=== PATIENT | female | born 1960 | race Caucasian/White ===

== ENCOUNTER 2019-12-28 13:05 | Inpatient (IN) | payer MEDICAID ==
[~2019-12-28] VITALS: Ht 170.2 cm; Wt 66.6 kg
--- NOTE | 2019-12-28 13:26 | PHYS DOC ---
Past History Past Medical History: Other Additional Past Medical Histor: "Lung problems" Alcohol Use: None General Adult EDM: Chief Complaint: SHORTNESS OF BREATH HPI: HPI: 59-year-old female significant history of hypertension, COPD on 3 L, who presents for evaluation of reported chest pain and dyspnea. The patient reportedly fell while attempting to stand from the seated position. She initially denied lightheadedness, but endorsed it on repeat questioning. Her chief complaint appears to be chest pain, which is been present for the last day or so. She is unable to elaborate any further. Reportedly hypoxic on scene, currently at 92%. She is a fairly poor historian. Review of Systems: Review of Systems: Gen: No fever, chills. CV: Reports chest pain. Resp. Reports dyspnea. GI: No abd pain, N/V. Neuro: Reports weakness. MSK: Reports body aches. ROS somewhat limited 2/2 poor historian. Heart Score: Risk Factors: Risk Factors: DM, Current or recent (<one month) smoker, HTN, HLP, family history of CAD, obesity. Risk Scores: Score 0 - 3: 2.5% MACE over next 6 weeks - Discharge Home Score 4 - 6: 20.3% MACE over next 6 weeks - Admit for Clinical Observation Score 7 - 10: 72.7% MACE over next 6 weeks - Early Invasive Strategies Physical Exam: PE: Gen: NAD. Head: NC/AT. Eyes: No scleral icterus. No conjunctival injection. ENT: MMM. Posterior OP clear. Neck: Supple. CV: RRR. Peripheral pulses intact. Resp: Globally diminished. Prolonged expiratory phase. Expiratory wheezing. Abd: Soft. NT. MSK: No peripheral cyanosis. No edema. Neuro: A&Ox3. Strength & sensation grossly intact throughout. Skin. Warm. Dry. Psych: Flat affect. Current Patient Data: Vital Signs: Vital Signs Date Time Temp Pulse Resp B/P (MAP) Pulse Ox O2 Delivery O2 Flow Rate FiO2 12/28/19 13:06 98.2 109 16 100/66 (77) 90 Nasal Cannula EKG: EKG: EKG at 1331. Sinus tachycardia. Heart rate 105. Normal intervals. Nonspecific ST changes. No STEMI. Interpreted by me. Radiology/Procedures: Radiology/Procedures: EXAM: CHEST AP ONLY INDICATION: Reason: SOA / Spl. Instructions: / History: . TECHNIQUE: Single view COMPARISON: None FINDINGS: The heart size is normal. Great vessels show mild enlargement of the pulmonary arteries left greater than right. There is no hilar or mediastinal mass. Lungs are increased lucency at the apices and show coarse reticular densities most conspicuous in the bilateral bases with interlobular septal thickening at the lateral costophrenic angles, right greater than left. There is no pleural effusion or pneumothorax. There are no significant osseous abnormalities. IMPRESSION: Findings suggesting COPD with interstitial pulmonary edema at the bases. Electronically signed by: Dorian Sanon MD (12/28/2019 2:10 PM) [facility] [place] Course & Med Decision Making: Course & Med Decision Making Pertinent Labs and Imaging studies reviewed. (See chart for details) In summary, 59-year-old female with history of COPD on 3 L, who presents for evaluation of acute on chronic dyspnea with chest pain. Pulse oximetry is mid 90s on increased oxygen requirement, now at 5 L nasal cannula. Chest x-ray is mildly congested, though BNP within normal limits. No acute infiltrate. Troponin negative. EKG shows no acute injury pattern. Received Solu-Medrol and DuoNeb. Will be admitted for further management. Dragon Disclaimer: Dragon Disclaimer: This electronic medical record was generated, in whole or in part, using a voice recognition dictation system. Departure Departure: Impression: Primary Impression: Acute on chronic respiratory failure Additional Impression: Chest pain Disposition: ADMITTED INPATIENT Admitting Physician: Cristian Fisher Condition: STABLE Referrals: PCP,NO (PCP) Justification of Admission: Justification of Admission: Justification of Admission Dx: Yes Respiratory Failure: Severe Resp Distress Aspiration Pneumonia: Chronic Lung Disease Acute COPD Exacerbation: Acute COPD Exacerbation JOHN HALE DO Dec 28, 2019 13:26
[2019-12-28] MEDS ORDERED: IPRATRPIUM/ALBUTEROL 0.5/2.5MG 3 ML NEBU. NEB ONE (13:30)
[2019-12-28] MEDS ORDERED: methylPREDNISolone SOD SUCC PF 125 MG/2 ML VIAL. IV ONE ×2 (13:30→21:00)
[2019-12-28 13:47] LABS: BASO % 0 % (0-3); EOS # 0.1 x10^3/uL (0.0-0.7); EOS % 0 % (0-3); HEMOGLOBIN 11.5 g/dL (12.0-15.5); LYMPH # 0.7 x10^3/uL (1.0-4.8); LYMPH % 6 % (24-48); MEAN CORPUSCULAR HEMOGLOBIN 28 pg (25-35); MEAN CORPUSCULAR HGB CONC 31 g/dL (31-37); MEAN CORPUSCULAR VOLUME 88 fL (79-100); MONO # 0.8 x10^3/uL (0.0-1.1); MONO % 7 % (0-9); NEUT % 87 % (31-73); PLATELET COUNT 149 x10^3/uL (140-400); RED CELL DISTRIBUTION WIDTH 15.5 % (11.5-14.5); WHITE BLOOD COUNT 11.6 x10^3/uL (4.0-11.0)
[2019-12-28 13:53] LABS: CALCIUM 9.5 mg/dL (8.5-10.1); CREATININE 0.6 mg/dL (0.6-1.0); GFR 102.3; POTASSIUM 4.1 mmol/L (3.5-5.1)
[2019-12-28 14:06] LABS: ALBUMIN 3.6 g/dL (3.4-5.0); ALBUMIN/GLOBULIN RATIO 1.2 (1.0-1.7); MAGNESIUM 1.8 mg/dL (1.8-2.4); TOTAL BILIRUBIN 1.3 mg/dL (0.2-1.0); TOTAL PROTEIN 6.5 g/dL (6.4-8.2)
--- NOTE | 2019-12-28 14:08 | EKG ---
[address] [address] Test Date: 2019-12-28 Test Time: 13:31:30 Pat Name: VANNA SCHAFER Department: Room: Gender: F Strategic Procurement Manager: : [id number] Requested By: JOHN HALE Order Number: [id number] Reading MD: Measurements Intervals [place] Rate: 105 P: 136 NC: 150 QRS: 152 QRSD: 94 T: 129 QT: 282 QTc: 376 Interpretive Statements SINUS TACHYCARDIA LEFT ATRIAL ABNORMALITY ABNORMAL RIGHT AXIS DEVIATION R-S TRANSITION ZONE IN V LEADS DISPLACED TO THE LEFT T ABNORMALITY IN HIGH LATERAL LEADS ABNORMAL ECG RI6.02 No previous ECG available for comparison
--- NOTE | 2019-12-28 14:13 | RAD ---
EXAM: CHEST AP ONLY INDICATION: Reason: SOA / Spl. Instructions: / History: . TECHNIQUE: Single view COMPARISON: None FINDINGS: The heart size is normal. Great vessels show mild enlargement of the pulmonary arteries left greater than right. There is no hilar or mediastinal mass. Lungs are increased lucency at the apices and show coarse reticular densities most conspicuous in the bilateral bases with interlobular septal thickening at the lateral costophrenic angles, right greater than left. There is no pleural effusion or pneumothorax. There are no significant osseous abnormalities. IMPRESSION: Findings suggesting COPD with interstitial pulmonary edema at the bases. Electronically signed by: Dorian Sanon MD (12/28/2019 2:10 PM) [facility] [place]
[2019-12-28] MEDS ORDERED: ONDANSETRON PF 4 MG/2 ML VIAL. IVP PRN (14:45)
[2019-12-28 15:48] VITALS: BP 120/68
--- NOTE | 2019-12-28 17:06 | NUR ---
PATIENT IS 59 Y O FEMALE ARRIVED TO THE UNIT VIA EMS, PT WAS ABLE TO TRANSFER TO BED WITH STAND BY ASSIST. PATIENT IS CALM AND COOPERATIVE UPON ASSESSMENT. PT WAS ORIENTED TO THE ROOM, UNIT AND HOSPITAL POLICIES, PT BELONGINGS OBTAINED. PATIENT WAS TESTED FOR COVID 19 AT ER, RESULT PENDING, PATIENT IS PLACED ON AIRBORN PRECAUTIONS . WILL CONTINUE TO MONITOR.
--- NOTE | 2019-12-28 17:21 | HP ---
ADMIT DATE: 12/28/2019 ATTENDING PHYSICIAN: Dr. Evans. CHIEF COMPLAINT: Shortness of breath. HISTORY OF PRESENT ILLNESS: The patient is a 59-year-old female, heavy smoker, who has oxygen dependent COPD. She is normally on 3 liters. For the last 2 days, she has been short of breath. She has had productive sputum, clear in nature. No fevers. No COVID exposure. In the ED, chest x-ray demonstrated COPD changes, chronic scarring and some interstitial edema at the bases. No acute infiltrates identified. She could not give us any much more history. The daughter states that she recently lost her and that she will go through periods where she will not speak and appears to be in a catatonic state. Normally, she has oxygen at home. She had been reported to be hypoxic by paramedics however, with oxygen she is up to 92% on 3 liters of nasal cannula. She is admitted then with an exacerbation of COPD and acute on chronic respiratory failure. PAST MEDICAL HISTORY: Significant for COPD, oxygen dependent. She was a heavy smoker. Supposedly, she quit a year ago. There is also remote history of hypertension. CURRENT MEDICINES: None that I can review. ALLERGIES: She has no known drug allergies. SOCIAL HISTORY: No alcohol or recreational drug use. FAMILY HISTORY: Mom of unspecified cancer, age is unknown. Then, she stopped talking. The rest of the social history and review of systems unobtainable due to inpatient psychiatric state. PHYSICAL EXAMINATION: GENERAL: When I saw her, this is a chronically ill-appearing female. INITIAL VITAL SIGNS: Showed blood pressure 120/62, pulse 100 and regular, temperature 98.2 degrees Fahrenheit, oxygen saturation 96% on 5 liters by nasal cannula. HEENT: Head is without trauma. Pupils are reactive. Sclerae nonicteric. Oropharynx clear. NECK: Supple. LUNGS: Diffuse wheezing bilaterally. CARDIOVASCULAR: Showed distant heart tones. No gallops. Peripheral pulses are palpable and full. ABDOMEN: Soft, scaphoid, nontender. It is distended. There is some tympany. There appears to be quite a bit of gas. No masses or rebound tenderness. EXTREMITIES: Showed trace edema. NEUROLOGIC: The patient's speech is fluent, but she appears to be in a catatonic state with a blank stare. We did not assess her gait. She is nonambulatory at this time. PERTINENT LABORATORY AND X-RAY STUDIES: Chest x-ray showed interstitial changes and chronic scarring. Hemoglobin is 11.5 g/dL with white count 11,600. Electrolytes within normal range. Cardiac enzymes negative for myocardial ischemia. ASSESSMENT: 1. A 59-year-old female with acute on chronic respiratory failure. 2. Exacerbation of chronic obstructive pulmonary disease. 3. Underlying depression with psychosis. 4. Catatonia. 5. Hypertension. PLAN: 1. Admit to the inpatient unit. 2. Nebulizer therapy. 3. Empiric steroid. 4. Supplemental oxygen. 5. Diet as tolerated. OWEN EVANS MD DR: VARINDER/kim JOB#: [id number] / [id number]
[2019-12-28] MEDS ORDERED: SIMV20TA18 PO (17:22)
[2019-12-28] MEDS ORDERED: OMEP40CA45 PO (17:23)
[2019-12-28] MEDS ORDERED: MONT10TA80 PO (17:24)
[2019-12-28] MEDS ORDERED: ALBU2.5V8 IH (17:27)
[2019-12-28] MEDS ORDERED: IPRA4AER INH (17:27)
[2019-12-28 19:33] VITALS: BP 123/71
[2019-12-28] MEDS: methylPREDNISolone SOD SUCC PF 125 MG/2 ML VIAL. IV SCH (20:48)
[2019-12-28] MEDS ORDERED: ALEN70TA6 PO (21:09)
[2019-12-28] MEDS ORDERED: SERT50TA PO (21:09)
[2019-12-28] MEDS ORDERED: HYDR25TA PO (21:09)
[2019-12-28] MEDS ORDERED: LEVO25TA4 PO (21:09)
[2019-12-28] MEDS ORDERED: RISP1TAB43 PO (21:09)
[2019-12-28 22:14] VITALS: BP 115/74
[2019-12-29 05:12] VITALS: BP 106/65
--- NOTE | 2019-12-29 09:56 | PN ---
DATE: 12/29/2019 ATTENDING PHYSICIAN: Dr. Evans. SUBJECTIVE: The patient is much more alert. Yesterday, she was fairly catatonic and could not get much response out of her. Today, she is sitting in her bed. She has supplemental oxygen on, which is continuous. She is eating her breakfast. She says she is chronically short of breath. OBJECTIVE FINDINGS: GENERAL: Her COVID-19 swab was done yesterday is pending. She has no signs or symptoms of COVID-19 virus. VITAL SIGNS: Her blood pressure today is 106/65 mmHg, pulse is 88 and regular, temperature 98.4 degrees Fahrenheit, and her oxygen saturations are at 91% on 3 liters of nasal cannula. HEENT: Head is without trauma. Pupils are reactive. Sclerae nonicteric. The oropharynx is clear. NECK: Supple, no bruits. LUNGS: Minimal wheezing. She is actually moving air pretty well. There is no significant rhonchi. CARDIOVASCULAR: Showed distant heart tones. No obvious gallops. Peripheral pulses are palpable and full. ABDOMEN: Soft, scaphoid, nontender, no organomegaly. Bowel sounds were normoactive. EXTREMITIES: Showed no edema. NEUROLOGIC: She has a slight essential tremor. Speech is fluent. SKIN: Warm and dry. PERTINENT LABORATORY DATA: Reviewed yesterday. ASSESSMENT: 1. A 59-year-old female with acute on chronic respiratory failure. 2. Oxygen-dependent chronic obstructive pulmonary disease with strong emphysema component. 3. Underlying depression with psychosis. 4. Catatonia, resolved. 5. Essential hypertension, currently normotensive. PLAN: 1. Continue steroid therapy empirically. 2. Nebulizer therapy. 3. Await COVID-19 swab. 4. Supplemental oxygen continued. 5. Diet as tolerated. 6. Discharge planning for tomorrow or the next day. OWEN EVANS MD DR: VARINDER/kim JOB#: [id number] / [id number]
[2019-12-29 10:25] VITALS: BP 122/70
[2019-12-29] MEDS: methylPREDNISolone SOD SUCC PF 125 MG/2 ML VIAL. IV SCH ×3 (10:33→20:20)
[2019-12-29] MEDS: LEVOTHYROXINE 25 MCG TABLET. PO SCH (12:04)
[2019-12-29] MEDS: PANTOPRAZOLE 40 MG TABLET. PO SCH (12:05)
[2019-12-29] MEDS: SERTRALINE 50 MG TABLET. PO SCH (12:05)
[2019-12-29] MEDS: risperiDONE 1 MG TABLET. PO SCH ×2 (12:05→20:20)
[2019-12-29] MEDS: IPRATROPIUM/ALBUTEROL 20/100mcg/INH INHALER. INH SCH ×2 (14:00→17:37)
[2019-12-29 15:00] VITALS: BP 128/68
[2019-12-29 19:12] VITALS: BP 117/69
[2019-12-29 22:09] VITALS: BP 121/71
[2019-12-30] MEDS: IPRATROPIUM/ALBUTEROL 20/100mcg/INH INHALER. INH SCH ×2 (00:19→05:32)
--- NOTE | 2019-12-30 03:58 | NUR ---
Pt still requiring O2 at 5L via high flow NC to keep sats >90%. Pt does report feeling somewhat better and has been up to bathroom with O2 tank, able to recover sats quickly. Pt rested throughout night.
[2019-12-30 05:01] VITALS: BP 107/61
[2019-12-30] MEDS: LEVOTHYROXINE 25 MCG TABLET. PO SCH (05:32)
[2019-12-30] MEDS: SERTRALINE 50 MG TABLET. PO SCH (07:41)
[2019-12-30] MEDS: PANTOPRAZOLE 40 MG TABLET. PO SCH (07:41)
[2019-12-30] MEDS: risperiDONE 1 MG TABLET. PO SCH ×2 (07:41→21:52)
[2019-12-30] MEDS: methylPREDNISolone SOD SUCC PF 125 MG/2 ML VIAL. IV SCH ×2 (07:42→21:52)
[2019-12-30 10:59] VITALS: BP 124/74
[2019-12-30 12:06] LABS: BGAS PH 7.4 (7.35-7.45)
[2019-12-30] MEDS ORDERED: IPRATRPIUM/ALBUTEROL 0.5/2.5MG 3 ML NEBU. ONE (12:24)
[2019-12-30] MEDS ORDERED: IPRATROPIUM/ALBUTEROL 20/100mcg/INH INHALER. INH PRN (12:30)
[2019-12-30] MEDS ORDERED: IPRATRPIUM/ALBUTEROL 0.5/2.5MG 3 ML NEBU. NEB ONE (12:45)
[2019-12-30] MEDS ORDERED: ALBUTEROL SULFATE 2.5 MG/3 ML NEBU. NEB PRN (13:00)
--- NOTE | 2019-12-30 14:01 | RAD ---
EXAM: ABDOMEN ONE VIEW. HISTORY: Abdominal distention. COMPARISON: None. FINDINGS: A frontal view of the abdomen is obtained. There are no distended small bowel loops. There is gas distally. Surgical clips are noted in the right upper quadrant and right hemipelvis. There are moderate degenerative changes of the lumbar spine. Atelectasis or scarring is noted in the lung bases. IMPRESSION: 1. No evidence of obstruction. Electronically signed by: Patti Aguilera MD (12/30/2019 1:58 PM) [id number]
[2019-12-30 14:50] VITALS: BP 119/74
[2019-12-30] MEDS: ALBUTEROL SULFATE 2.5 MG/3 ML NEBU. NEB SCH ×3 (16:03→19:46)
--- NOTE | 2019-12-30 18:50 | PN ---
DATE: 12/30/2019 ATTENDING PHYSICIAN: Dr. Evans. SUBJECTIVE: The patient is doing better. She has no specific complaints. She is still a little bit confused. Her COVID-19 swab yesterday was reported as negative. OBJECTIVE FINDINGS: VITAL SIGNS: Oxygen saturations are marginal about 85%. She has got a distended abdomen, which is pushing up on her diaphragm thus restricting her lungs ability to expand. Blood pressure is 107/61, pulse is 85 and regular, temperature 96.0 degrees Fahrenheit, and her oxygen saturation as I said is diminished on 3 liters. HEENT: Head is without trauma. Pupils are reactive. Sclerae nonicteric. Oropharynx is clear. NECK: Supple, no bruits identified. LUNGS: Minimal wheezing in the upper airways. CARDIOVASCULAR: Showed distant heart tones. No gallops. ABDOMEN: Distended, tympanitic, hypoactive bowel sounds. EXTREMITIES: Showed no cyanosis or edema. NEUROLOGIC: Focally intact. Speech is fluent. SKIN: Warm and dry. ASSESSMENT: 1. A 59-year-old female with acute on chronic respiratory failure, improved. 2. Oxygen-dependent chronic obstructive pulmonary disease with strong emphysema component. 3. Underlying depression with psychosis. 4. Catatonia, resolved. 5. Essential hypertension. 6. Abdominal distention. We want to rule out constipation and/or bowel obstruction. PLAN: 1. KUB upright. 2. Decrease steroid dosage. 3. Continue nebulizers. 4. Supplemental oxygen. 5. Discharge planning tentative for tomorrow. OWEN EVANS MD DR: VARINDER/kim JOB#: [id number] / [id number]
[2019-12-30 18:54] VITALS: BP 120/74
[2019-12-30 23:10] VITALS: BP 119/67
[2019-12-31] MEDS: ALBUTEROL SULFATE 2.5 MG/3 ML NEBU. NEB SCH ×4 (04:19→20:00)
[2019-12-31] MEDS: LEVOTHYROXINE 25 MCG TABLET. PO SCH (05:35)
[2019-12-31 05:52] VITALS: BP 127/85
[2019-12-31] MEDS: PANTOPRAZOLE 40 MG TABLET. PO SCH (09:30)
[2019-12-31] MEDS: risperiDONE 1 MG TABLET. PO SCH ×2 (09:30→22:15)
[2019-12-31] MEDS: SERTRALINE 50 MG TABLET. PO SCH (09:30)
[2019-12-31] MEDS: methylPREDNISolone SOD SUCC PF 125 MG/2 ML VIAL. IV SCH ×2 (10:01→22:14)
--- NOTE | 2019-12-31 11:56 | PN ---
DATE: 12/31/2019 ATTENDING PHYSICIAN: Dr. Evans. SUBJECTIVE: She is dyspneic at rest. She is struggling to breath, using accessory muscles. OBJECTIVE FINDINGS: VITAL SIGNS: Blood pressure today is 127/85 mmHg, temperature 97.9, oxygen saturation marginal about 80% at rest. HEENT: Head is without trauma. Pupils are reactive. Sclerae nonicteric. Oropharynx is clear. NECK: Supple, no bruits. LUNGS: Shallow respirations with some wheezing. CARDIOVASCULAR: Showed regular heart tones. No gallops. ABDOMEN: Protuberant, distended, tympanitic. No guarding or rebound tenderness. Bowel sounds were hypoactive. EXTREMITIES: Showed no cyanosis or edema. NEUROLOGIC: Focally intact. Speech is fluent. SKIN: A bit cool. LABORATORY DATA: Yesterday, she had a KUB upright showing gaseous distention. No obstruction. ASSESSMENT: 1. A 59-year-old female with acute on chronic hypercarbic respiratory failure. 2. Oxygen-dependent chronic obstructive pulmonary disease with strong emphysema component. 3. Depression with psychosis. 4. Catatonia, resolved. 5. Essential hypertension. 6. Abdominal distention due to increased gaseous distention. PLAN: 1. I will order BiPAP today. 2. Continue nebulizers. 3. Continue Solu-Medrol. 4. Follow up ABGs in the morning. OWEN EVANS MD DR: VARINDER/kim JOB#: [id number] / [id number]
[2019-12-31 11:59] VITALS: BP 124/75
--- NOTE | 2019-12-31 12:08 | NUR ---
Pts affect is flat. Pt is able to make wants and needs known. Appetite is poor. While entering room for am medication pass nurse observed RT placing pt on BIPAP. Pt has a difficult time keeping BIPAP in the proper place and often adjusts it on her own. Nurse reminds and educates pt on use of BIPAP.
[2019-12-31 15:35] VITALS: BP 119/76
--- NOTE | 2019-12-31 16:53 | NUR ---
Pts son brought in her CPAP. CPAP was labeled and placed in her room.
--- NOTE | 2019-12-31 18:11 | NUR ---
Pt is declining to wear her BIPAP at this time. Nurse educated pt on importance of wearing it. Pt continued to decline BIPAP and stated she would put it on later.
[2019-12-31 18:55] VITALS: BP 136/80
[2019-12-31 23:33] VITALS: BP 124/62
--- NOTE | 2020-01-01 01:28 | NUR ---
Pt struggled with fitting of mask; discomfort, frustration, difficulty speaking. RT assisted pt in fitting larger mask, applied foam tape. Pt requests frequent breaks from the mask; does not tolerate well. Encouraged pt to only remove mask for eating, taking a drink and oral medications. Bedside commode repositioned to be within reach of Bipap. Pt shows increased tremors and states she just needs to "calm down awhile" every time she has to put the mask back on or get up to go to commode. Pt expresses depression and anxiety from her recently . Dr. Fisher contacted, orders received and implemented.
[2020-01-01] MEDS: LEVOTHYROXINE 25 MCG TABLET. PO SCH (06:00)
[2020-01-01 06:15] LABS: BGAS PH 7.28 (7.35-7.45)
[2020-01-01 06:41] VITALS: BP 132/62
[2020-01-01] MEDS: ALBUTEROL SULFATE 2.5 MG/3 ML NEBU. NEB SCH ×3 (06:50→14:00)
[2020-01-01 07:28] LABS: BASO % 0 % (0-3); EOS % 0 % (0-3); HEMATOCRIT 36.4 % (36.0-47.0); HEMOGLOBIN 11.2 g/dL (12.0-15.5); LYMPH # 0.6 x10^3/uL (1.0-4.8); LYMPH % 4 % (24-48); MEAN CORPUSCULAR HEMOGLOBIN 27 pg (25-35); MEAN CORPUSCULAR HGB CONC 31 g/dL (31-37); MEAN CORPUSCULAR VOLUME 88 fL (79-100); MONO # 0.6 x10^3/uL (0.0-1.1); MONO % 5 % (0-9); NEUT # 12.5 x10^3uL (1.8-7.7); NEUT % 91 % (31-73); PLATELET COUNT 245 x10^3/uL (140-400); RED BLOOD COUNT 4.12 x10^6/uL (3.50-5.40); RED CELL DISTRIBUTION WIDTH 15.8 % (11.5-14.5); WHITE BLOOD COUNT 13.7 x10^3/uL (4.0-11.0)
[2020-01-01 08:06] LABS: ALBUMIN 3.2 g/dL (3.4-5.0); CALCIUM 9.1 mg/dL (8.5-10.1); CREATININE 0.6 mg/dL (0.6-1.0); GFR 102.3; POTASSIUM 4.8 mmol/L (3.5-5.1); TOTAL BILIRUBIN 0.5 mg/dL (0.2-1.0); TOTAL PROTEIN 6.5 g/dL (6.4-8.2)
[2020-01-01 09:35] LABS: BGAS PH 7.33 (7.35-7.45)
[2020-01-01] MEDS: SERTRALINE 50 MG TABLET. PO SCH (09:51)
[2020-01-01] MEDS: PANTOPRAZOLE 40 MG TABLET. PO SCH (09:51)
[2020-01-01] MEDS: methylPREDNISolone SOD SUCC PF 125 MG/2 ML VIAL. IV SCH (09:51)
[2020-01-01] MEDS: risperiDONE 1 MG TABLET. PO SCH (09:52)
[2020-01-01 11:00] VITALS: BP 120/77
--- NOTE | 2020-01-01 12:05 | NUR ---
PATIENT VS OBTAINED AND spo2 NOTED AT 85% ALL OTHER VITAL SIGNS ARE STABLE. RT NOTIFIED AND ADVISED THIS NURSE TO CALL DR. EVANS FOR CHANGES HE MADE THE LAST CHANGES TO BIPAP SETTINGS. DR. EVANS CALLED AND NOTIFIED OF PTS SPO2. DR EVANS INSTRUCTED THIS NURSE TO LEAVE THE SETTINGS THEY WERE AND THAT HE WAS FINE WITH PATIENTS SATS BEING AT 85%. PATIENT IS RESTING IN BED AT THIS TIME. WILL CONTINUE TO MONITOR.
--- NOTE | 2020-01-01 12:55 | PN ---
DATE: 01/01/2020 ATTENDING PHYSICIAN: Dr. Evans CHIEF COMPLAINT: Shortness of breath. SUBJECTIVE: The patient is alert. She is tolerating the BiPAP well. Gases this morning showed an increase in pCO2 to 100 that is because her FiO2 was increased on the BiPAP. I asked Respiratory Therapy to turn it down. The repeat gas showed a pH of 7.33, pCO2 of 90, pO2 of 64. OBJECTIVE FINDINGS: VITAL SIGNS: Her blood pressure today is 132/62 mmHg. She is afebrile and her pulse is 80 and regular. HEENT: Head is without trauma. Pupils are reactive. Sclerae nonicteric. Oropharynx clear. NECK: Supple, no bruits identified. LUNGS: Shallow respirations with minimal wheezing. CARDIOVASCULAR: Showed distant heart tones. No gallops. ABDOMEN: Soft, distended, tympanitic due to increased gas. There is no guarding or rebound tenderness. EXTREMITIES: Showed no cyanosis or edema. NEUROLOGIC: Focally intact. Speech is fluent. SKIN: Warm and dry. ASSESSMENT: 1. A 59-year-old female with acute on chronic hypercarbic respiratory failure. 2. Oxygen-dependent chronic obstructive pulmonary disease with strong emphysema component. 3. Depression with psychosis. 4. Catatonia, resolved. 5. Essential hypertension. 6. Abdominal distention due to gaseous distention as she is a mouth breather. PLAN: 1. We will adjust the BiPAP settings to increase the pressure. 2. Continue nebulizers. 3. Continue Solu-Medrol. 4. Follow up ABGs in the morning. OWEN EVANS MD DR: VARINDER/kim JOB#: [id number] / [id number]
[2020-01-01 13:45] LABS: BGAS PH 7.32 (7.35-7.45)
[2020-01-01] MEDS ORDERED: BUDESONIDE 0.5 MG/2 ML NEBU ONE (13:55)
--- NOTE | 2020-01-01 14:23 | NUR ---
DR EVANS NOTIFIED OF PTS CRITICAL ABG RESULTS. DR EVANS ASKED THIS NURSE TO HAVE [facility] ATTENDANT CONTACT DR FIGUEROA OR HOSPITALIST AT [facility]. TO TRANSFER PATIENT TO [facility]. PATIENT IS STABLE AT THIS TIME WILL CONTINUE TO MONITOR.
--- NOTE | 2020-01-01 15:04 | RAD ---
EXAM: Chest, single view. HISTORY: Shortness of breath. COMPARISON: 12/28/2019 FINDINGS: A frontal view of the chest is obtained. There has been resolution of previously demonstrated lower lobe interstitial infiltrate. There is emphysema. There is no pleural effusion or pneumothorax. There is a stable cardiac silhouette. IMPRESSION: Resolution of previously demonstrated interstitial infiltrate. Electronically signed by: Mary Carmen Damon MD (01/01/2020 3:01 PM) [facility]
[2020-01-01 15:36] LABS: BGAS PH 7.34 (7.35-7.45)
--- NOTE | 2020-01-01 15:41 | NUR ---
PT IS TRANSFEREE VIA EMS TO [facility]. PATIENT IS STABLE BUT CRITICAL. PATIENT HAS ALL BELONGINGS WITH SELF AT TIME OF DISCHARGE.
--- NOTE | 2020-01-01 15:48 | EKG ---
[address] [address] Test Date: 2020-01-01 Test Time: 12:59:27 Pat Name: VANNA SCHAFER Department: Room: 105 A Gender: F Construction Superintendent: : 1960 Requested By: OWEN EVANS Order Number: [id number] Reading MD: Measurements Intervals [place] Rate: 101 P: 74 VT: 148 QRS: 91 QRSD: 96 T: 61 QT: 334 QTc: 434 Interpretive Statements SINUS TACHYCARDIA RIGHTWARD AXIS R-S TRANSITION ZONE IN V LEADS DISPLACED TO THE LEFT QRS(T) CONTOUR ABNORMALITY CONSIDER ANTEROSEPTAL MYOCARDIAL DAMAGE POSSIBLY ABNORMAL ECG RI6.01 No previous ECG available for comparison
[2020-01-01] MEDS ORDERED: BUDESONIDE 0.5 MG/2 ML NEBU NEB SCH (20:00)
--- NOTE | 2020-01-02 09:22 | DS ---
DATE OF DISCHARGE: 01/01/2020 ATTENDING PHYSICIAN: Dr. Evans. FINAL DISCHARGE DIAGNOSES: 1. Acute on chronic respiratory failure. 2. Hypercarbic respiratory failure. 3. Oxygen-dependent chronic obstructive pulmonary disease. 4. Strong emphysema component. 5. Depression with psychosis. 6. Catatonia. 7. Essential hypertension. 8. Abdominal distention due to aerophagia. HISTORY AND PHYSICAL: The patient is a 59-year-old female admitted with increasing shortness of breath, desaturation. She has an oxygen-dependent COPD, strong previous medical history of smoking. She states she has quit. I am not sure whether she is forthcoming. In the ED, her workup was fairly unremarkable except for the respiratory failure. Her chest x-ray and KUB are noted. Followup x-rays as noted. PHYSICAL EXAMINATION: Please see the dictated note. PERTINENT LABORATORY AND X-RAY STUDIES: Admission x-ray on the showed COPD with interstitial pulmonary edema at the bases, mild in nature. Her KUB done on 12/30/2019 showed evidence of gaseous distention without any obvious obstruction. Arterial blood gases done during admission showed significant hypercarbia. She had retention of CO2 to buffer her pH during this hospitalization. ABGs are as follows: Admission ABG was pH 7.40, pCO2 of 70, pO2 of 65 on 40% oxygen. On 01/01/2020, pCO2 was up to 100, pH 7.28, pO2 of 96 after we titrated oxygen down. The next three arterial blood gases show still persistent pCO2 of 90 mmHg, 94 mmHg and 89 mmHg. Oxygen saturations were marginal. Her other laboratories showed hemoglobin of 11.5 g/dL, white count 11,600. Electrolytes within normal range. Bicarbonate level 44. Nonfasting blood sugar was 116. Cardiac enzymes negative for coronary ischemia. Repeat chest x-ray on 01/01/2020 showed resolution of previously demonstrated interstitial infiltrate. There is no obvious new infiltrates identified. COURSE IN THE HOSPITAL: The patient was admitted. She was started on nebulizer therapy, Aerosol treatment and empiric Solu-Medrol. She was doing okay, about 2 days later, she has a struggle breathing, using accessory muscles. BiPAP was initiated. She had some improvement. She was on BiPAP for a 36-hour. On the fourth hospital day, she was getting more obtunded, CO2 remained up between 90 and 100 mmHg. Because of her inability to improve, we elected to transfer the patient to [facility], their Intensive Care Unit where pulmonary anesthesia and possible intubation facilities are available. Dr. Ha was notified. He was gracious to accept the patient in transfer. Her discharge meds from here included Solu-Medrol, nebulizer therapy and minimal doses of narcotics and benzodiazepines. Her prognosis is guarded. The patient was then transferred on the afternoon of 01/01/2020 by ambulance to [facility] for higher level of care. Dr. Ha will be the accepting physician. OWEN EVANS MD DR: VARINDER/kim JOB#: [id number] / [id number] FAYE Beavers MD
== END 2020-01-01 15:30 | disposition short-term general hospital (02) | DRG 189 ==
LOC: ER 13:05 → 1 SOUTH 14:35 → ER 15:20 → 1 SOUTH 12-29 19:06
PROVIDERS: ADMIT Hospitalist; ATTEND Hospitalist
PROC: 5A09457 Assistance with Respiratory Ventilation, 24-96 Consecutive Hours, Continuous Positive Airway Pressure (ICD-10-PCS; principal; 2020-01-01)
DX: J96.21 Acute and chronic respiratory failure with hypoxia (principal); F20.2 Catatonic schizophrenia; F45.8 Other somatoform disorders; F17.200 Nicotine dependence, unspecified, uncomplicated; I10 Essential (primary) hypertension; J43.9 Emphysema, unspecified; J96.22 Acute and chronic respiratory failure with hypercapnia; Z99.81 Dependence on supplemental oxygen; Z20.828 Contact with and (suspected) exposure to other viral communicable diseases; Z79.899 Other long term (current) drug therapy; F32.9 Major depressive disorder, single episode, unspecified
CPT/HCPCS: 36415; 36600; 71045; 74018; 80053; 82803; 83735; 83880; 84484; 85025; 93005; 94640; 94660; 94760; 96374; J2060; J2930; 99285-25; J7613; U0003-CS